=== PATIENT | female | born 1960 | race Caucasian/White ===

== ENCOUNTER 2020-06-02 07:55 | Outpatient (CLI) | payer BC, SELFPAY ==
--- NOTE | ~2020-06-02 | MM_ITS ---
EXAMINATION: MM screening rachelle BI w trae HISTORY: Screening TECHNIQUE: Craniocaudal and mediolateral oblique 3-D tomosynthesis images were obtained and synthetic 2-D images were generated. CAD analysis was submitted and interpreted. COMPARISON: Comparison to multiple prior studies sequentially, with oldest reviewed study dated 11/05. BREAST PARENCHYMAL COMPOSITION: There are scattered areas of fibroglandular density. FINDINGS: There is no evidence of suspicious mass, calcification, or architectural distortion to sugg est malignancy in either breast. There has been no suspicious interval change. IMPRESSION: 1. No mammographic evidence of malignancy. 2. Recommend routine screening mammography in one year. BI-RADS Category 1: Negative Reviewed, dictated and finalized at location A. [employer]OR OF COMMUNICATIONS
== END 2020-06-02 07:56 | disposition home or self-care (01) ==
LOC: ANHIMG 07:57
PROVIDERS: PCP Family Medicine; Visit Provider Family Medicine
DX: Z12.31 Encounter for screening mammogram for malignant neoplasm of breast (principal)
CPT/HCPCS: 77063; 77067

== ENCOUNTER 2020-06-29 13:23 | Emergency (ER) | payer BC, SELFPAY ==
--- NOTE | ~2020-06-29 | XR_ITS ---
EXAMINATION: XR ankle LT min 3V DATE: 06/29/2020 13:51 INDICATION: Left ankle pain TECHNIQUE: Anteroposterior, lateral, mortise, and additional oblique view of the ankle were obtained. COMPARISON: None. FINDINGS: There is diffuse soft tissue swelling of ankle. No fracture is identified. 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 IMPRESSION: 1. Ankle soft tissue swelling without acute osseous abnormality identified. Reviewed, dictated and finalized at location A. [employer]
--- NOTE | 2020-06-29 13:33 | ED.LOWEXIN ---
HPI - Extremity Injury (Lower) General Chief Complaint: Extremity Injury, Lower Stated Complaint: Left Ankle Pain Time Seen by Provider: 06/29/20 13:38 Source: patient and RN notes reviewed Mode of arrival: ambulatory Limitations: no limitations History of Present Illness HPI Narrative: 59-year-old female presents with concern for left lateral ankle pain. Reports on Tuesday she slipped on the ice and rolled her ankle. Reports she has been using a supportive shoe and taking ibuprofen with some relief. Reports symptoms have improved slightly today. She reports left lateral ankle swelling. Denies decreased sensation, strength, range of motion. MD complaint: ankle injury Related Data Home Medications Medication Instructions Recorded Confirmed cholecalciferol (vitamin D3) 625 25,000 unit PO WEEKLY 07/16/19 03/28/20 mcg (25,000 unit) capsule folic acid 20 mg capsule 20 mg PO DAILY 07/16/19 03/28/20 multivitamin 1 tablet PO DAILY 07/16/19 03/28/20 clobetasol 0.05 % scalp solution 1 applic TOPICAL DAILY 03/28/20 03/28/20 doxycycline hyclate 20 mg tablet 40 mg PO DAILY tablet 03/28/20 03/28/20 minoxidil 2 % topical solution 1 ml TOPICAL ONCE ml 03/28/20 03/28/20 Allergies Allergy/AdvReac Type Severity Reaction Status Date / Time Penicillins Allergy Unknown UNKNOWN Verified 03/28/20 16:09 Review of Systems Review of Systems: Narrative: CONSTITUTIONAL: Denies malaise, chills, sweats, or fever. CARDIOVASCULAR: Denies chest pain, palpitations, or edema. RESPIRATORY: Denies cough or dyspnea. SKIN: Denies lacerations, abrasions MUSCULOSKELETAL: Reports left lateral ankle pain and swelling, reports pain exacerbated with flexion of toes NEUROLOGIC: Denies numbness, weakness All systems reviewed & are unremarkable except as noted in HPI and below PMFSH Past Medical History Medical History (Updated 06/29/20 @ 14:07 by Lisa Wallace NP) Anemia Encounter for monitoring Dilantin therapy Endometrial hyperplasia History of shingles Hypertension Surgical History Surgical History H/O colonoscopy 2018 History of cholecystectomy History of removal of both ovaries History of tonsillectomy Family History Family History Mother Hypertension Family history of kidney disease Family history of diabetes mellitus in first degree relative Father Family history of diabetes mellitus in first degree relative Family history of malignant neoplasm of urinary bladder Social History Social History Smoking status: Never smoker Second hand tobacco smoke exposure: No Alcohol intake: current Comments At time of signature, agree with nursing past medical, surgical, social and family history. There is no relevant family history pertinent to the presenting complaint Exam Narrative: Exam Narrative: GENERAL: Well-appearing, well-nourished, and in no acute distress. HEAD: Normocephalic, atraumatic. EYES: PERRLA, conjunctivae clear NECK: Supple. CHEST: Speaks in full sentences. No respiratory distress. HEART: Regular rate and rhythm. Normal and equal peripheral pulses. EXTREMITIES: Left ankle, foot, digits have normal strength and sensation, normal range of motion. Moderate lateral ankle edema, no ecchymosis. 5/5 strength with ankle and digit flexion and extension. Normal sensation with sensitivity to light touch and pain. Lateral ankle tenderness. No open wounds, no skin tenting, no devitalized tissue or atrophy, no trophic changes, no obvious deformity, alignment normal, nearby joints and structures intact. Distal pulses palpable and equal bilaterally, skin warm, dry, pink. Capillary refill less than 3 seconds. SKIN: Warm, dry, no rash. NEURO: Alert and oriented x3. PSYCH: Normal mood and affect Course Course Emergency Course: Patient is aware of diagnosi
[2020-06-29 13:42] VITALS: BP 147/70; PULSE 67; RESP 16; TEMP 36.4; O2SAT 97
== END 2020-06-29 14:17 | disposition home or self-care (01) ==
PROVIDERS: Emergency Provider Nurse Practitioner; PCP Family Medicine
DX: S93.402A Sprain of unspecified ligament of left ankle, initial encounter (principal); W18.49XA Other slipping, tripping and stumbling without falling, initial encounter; I10 Essential (primary) hypertension; N85.00 Endometrial hyperplasia, unspecified
CPT/HCPCS: 73610; 99213; G0463

== ENCOUNTER 2021-11-21 10:04 | Emergency (ER) | payer BC, SELFPAY ==
[2021-11-21 10:13] VITALS: BP 140/69; PULSE 58; RESP 16; TEMP 36.5; O2SAT 99
--- NOTE | 2021-11-21 10:17 | ED.SKABFB ---
HPI - Skin/Abscess/Foreign Bdy General Chief complaint: Skin/Abscess/Foreign Body Stated complaint: rash Time Seen by Provider: 11/21/21 10:18 Source: patient and RN notes reviewed Mode of arrival: ambulatory Limitations: no limitations History of Present Illness HPI narrative: 61-year-old female presents to the [facility] with complaints of a rash to the abdomen, bilateral forearms and posterior legs for approximately a week to 10 days. Has tried xjlq-[id number]-[id number] products with no relief. Patient denies any new creams, ointments, lotions or detergents. States that she was playing with her friend's dog and several hours later rash developed. Tried multiple [id number]-[id number] products with no complete relief. Onset (ago): day(s) () Related Data Home Medications Medication Instructions Recorded Confirmed folic acid 20 mg capsule 20 mg PO DAILY 07/16/19 04/08/21 multivitamin 1 tablet PO DAILY 07/16/19 04/08/21 clobetasol 0.05 % scalp solution 1 applic topical DAILY 03/28/20 04/08/21 doxycycline hyclate 20 mg tablet 40 mg PO DAILY 03/28/20 04/08/21 minoxidil 2 % topical solution 1 ml topical ONCE 03/28/20 04/08/21 (Rogaine) Allergies Allergy/AdvReac Type Severity Reaction Status Date / Time Penicillins Allergy Unknown UNKNOWN Verified 04/08/21 15:53 Review of Systems Review of Systems: All systems reviewed & are unremarkable except as noted in HPI and below Constitutional: Constitutional: Reports no additional constitutional complaints, Denies chills and Denies fever(s) Eyes: Eyes: Reports no additional eye complaints ENT: Reports system reviewed and no additional complaints, except as documented Cardiovascular: Cardiovascular: Reports no additional cardiovascular complaints Respiratory: Respiratory: Reports no additional respiratory complaints Gastrointestinal: Gastrointestinal: Reports no additional gastrointestinal complaints Musculoskeletal: Musculoskeletal: Reports no additional musculoskeletal complaints Integumentary/Breasts: Skin/Breast: Reports as per HPI and Reports rash (Abdomen, bilateral forearms, posterior knees) Neurologic: Reports system reviewed and no additional complaints, except as documented Psychiatric: Psychiatric: Reports no additional psychiatric complaints Allergic/Immunologic: Allergic/Immunologic: Reports no additional allergic/immunologic complaints PMFSH Past Medical History Medical History Anemia Encounter for monitoring Dilantin therapy Endometrial hyperplasia History of shingles Hypertension Surgical History Surgical History H/O colonoscopy 2018 History of cholecystectomy History of removal of both ovaries History of tonsillectomy Family History Family History Mother Hypertension Family history of kidney disease Family history of diabetes mellitus in first degree relative Father Family history of diabetes mellitus in first degree relative Family history of malignant neoplasm of urinary bladder Social History Social History Second hand tobacco smoke exposure: No Alcohol intake: current Comments At the time of my signature, I reviewed and agree with the nursing past medical, surgical, social, and family history. There is no relevant family history pertinent to the patient complaint. Exam Const: General: healthy appearing, no acute distress and alert Nutritional Appearance: well nourished Orientation/consciousness: patient oriented x3 Limitations: no limitations HENMT: Head: normal to inspection Ears: external ears normal Mouth: Yes Normal oral and palatal mucosa present and Yes lip normal Throat: posterior oropharynx normal and uvula midline Eyes: General: appearance normal, both eyes and all related structures Pupils: Equal, rou
== END 2021-11-21 10:31 | disposition home or self-care (01) ==
PROVIDERS: Emergency Provider Nurse Practitioner; PCP Family Medicine
DX: L25.9 Unspecified contact dermatitis, unspecified cause (principal); I10 Essential (primary) hypertension; N85.00 Endometrial hyperplasia, unspecified
CPT/HCPCS: 99213; G0463

== ENCOUNTER 2022-08-12 07:41 | Outpatient (CLI) | payer BC, SELFPAY ==
--- NOTE | ~2022-08-12 | DEXA_ITS ---
Bone Density Report Name: GEOVANNY ARAUJO Age: 61 Sex: Female Ethnicity: White Date of : 1960 Indication: postmenopausal; screening for osteoporosis; seizure disorder; Referring Provider: LARS MURRAY Study: Bone densitometry was performed. Exam Date: August 12, 2022 Accession number: [id number] Bone Density: Region BMD T-score Z-score Classification AP Spine(L1-L4) 1.059 0.1 1.6 Normal Femoral Neck (Left) 0.745 -0.9 0.4 Normal Total Hip (Left) 0.958 0.1 1.1 Normal Femoral Neck (Right) 0.776 -0.7 0.7 Normal Total Hip (Right) 0.887 -0.4 0.5 Normal Total Hip Mean 0.923 -0.2 0.8 Normal World Health Organization criteria for BMD impression classify patients as: Normal (T-score at or above -1.0), Osteopenia (T-score between -1.0 and -2.5), or Osteoporosis (T-score at or below -2.5). 10-year Fracture Risk: FRAX not reported because: All T-scores for Spine Total, Hip Total, Femoral Neck at or above -1.0 Clinical Information Provided by Patient: Has used the following medications: Vitamin D, Calcium Has the following medical conditions: Any Seizure Disorders Patient maximum height was 65 Menopause Age: 51 No regular weight bearing exercise Drinks caffeinated beverages Onset of menses at age 10 Number of children 0 Impression: The patient has normal bone mass. Discussion: BONE DENSITY IS ABOVE THE MINIMUM DESIRABLE LEVEL AT ALL SKELETAL SITES TESTED. This patient?s bone mineral density is above the minimum desirable level (T-score -1.0 or better) at all sites measured. The patient should follow a healthful lifestyle (good nutrition with adequate calcium and vitamin D, and appropriate weight-bearing exercise). Follow-Up: Consider repeating this study in 5 years or sooner if there is some new clinical indication. Reported by: JORDON on 08/12/2022 8:26:00 AM. Reviewed, dictated and finalized at location A.
--- NOTE | ~2022-08-12 | MM_ITS ---
EXAMINATION: MM screening rachelle BI w trae HISTORY: Screening TECHNIQUE: Craniocaudal and mediolateral oblique 3-D tomosynthesis images were obtained and synthetic 2-D images were generated. CAD analysis was submitted and interpreted. COMPARISON: Comparison to multiple prior studies sequentially, with oldest reviewed study dated 11/05. BREAST PARENCHYMAL COMPOSITION: There are scattered areas of fibroglandular density. FINDINGS: There are developing nodular asymmetries in the central aspect of the right breast. The lef t breast is stable without evidence for malignancy. IMPRESSION: 1. Developing right breast asymmetries. 2. Additional mammographic views and possible breast ultrasound are recommended. BI-RADS Category 0: Incomplete: Needs additional imaging evaluation. Reviewed, dictated and finalized at location A. IMPRESSION: 1. Developing right breast asymmetries. 2. Additional mammographic views and possible breast ultrasound are recommended . BI-RADS Category 0: Incomplete: Needs additional imaging evaluation.
== END 2022-08-12 07:42 | disposition home or self-care (01) ==
PROVIDERS: PCP Family Medicine; Visit Provider Family Medicine
DX: Z12.31 Encounter for screening mammogram for malignant neoplasm of breast (principal); Z78.0 Asymptomatic menopausal state; R92.8 Other abnormal and inconclusive findings on diagnostic imaging of breast
CPT/HCPCS: 77063; 77067; 77080

== ENCOUNTER 2022-08-31 13:31 | Outpatient (CLI) | payer BC, SELFPAY ==
--- NOTE | ~2022-08-31 | MMUS_ITS ---
EXAMINATION: MM diagnostic rachelle RT w trae, US breast RT complete HISTORY: Developing right breast mammographic asymmetries TECHNIQUE: Additional 3-D tomosynthesis images of the breast were performed and synthetic 2-D images were generated. CAD analysis was submitted and interpreted. High resolution complete right breast ult rasound examination including all four quadrants and subareolar area was performed. COMPARISON: August 12, 2022 bilateral screening mammogram FINDINGS: MAMMOGRAPHIC FINDINGS: There is an approximately 3 x 6 mm circumscribed opacity in the central right breast medial to the mi d sagittal plane, with halo sign, possible radiolucent hilus, likely benign, probably an intramammary lymph node. No suspicious mass or architectural distortion malignant calcification, skin thickening or retraction is detected. ULTRASOUND: No suspicious mass or shadowing or other significant sonographic abnormality is detected. IMPRESSION: 1. Probably benign finding 2. 6 month follow up right diagnostic mammogram is recommended. BI-RADS category 3, probably benign findings. Reviewed, dictated and finalized at location A. IMPRESSION: 1. Probably benign finding 2. 6 month follow up right diagnostic mammogram is recommended. BI-RADS category 3, probably benign findings.
== END 2022-08-31 13:32 | disposition home or self-care (01) ==
PROVIDERS: PCP Family Medicine; Visit Provider Family Medicine
DX: R92.8 Other abnormal and inconclusive findings on diagnostic imaging of breast (principal)
CPT/HCPCS: 76641; 77061; 77065; G0279

== ENCOUNTER 2023-04-08 13:06 | Outpatient (CLI) | payer BC, SELFPAY ==
--- NOTE | ~2023-04-08 | MMUS_ITS ---
EXAMINATION: MM diagnostic rachelle RT w trae, US breast RT complete HISTORY: Probably benign approximately 3 x 6 mm circumscribed opacity in central right breast medial to mid sagittal plane, with halo sign, likely benign, diagnostic right mammogram TECHNIQUE: Full-field and spot ML, MLO and CC 3-D tomosynthesis images of the right breast were perfo rmed and synthetic 2-D images were generated. CAD analysis was submitted and interpreted. High resolu tion complete right breast ultrasound examination including all 4 quadrants and subareolar area was p erformed. COMPARISON: 08/31/2022 diagnostic right mammogram and complete right breast ultrasound 08/12/2022 bilateral screening mammogram BREAST PARENCHYMAL COMPOSITION: There are scattered areas of fibroglandular density. FINDINGS: MAMMOGRAPHIC FINDINGS: Stable scattered low-density nodular opacities, without interval change since 08/12/2022. ULTRASOUND: Numerous suspicious mass or shadowing, cyst or other significant sonographic abnormality of the right breast is detected. IMPRESSION: 1. Benign findings 2. Routine annual mammographic screening is recommended BI-RADS Category 2: Benign finding(s). Reviewed, dictated and finalized at location A. [employer] INST[employer]ER IMPRESSION: 1. Benign findings 2. Routine annual mammographic screening is recommended BI-RADS Category 2: Benign finding(s).
== END 2023-04-08 13:07 | disposition home or self-care (01) ==
PROVIDERS: PCP Family Medicine; Visit Provider Family Medicine
DX: R92.8 Other abnormal and inconclusive findings on diagnostic imaging of breast (principal)
CPT/HCPCS: 76641; 77061; 77065; G0279

== ENCOUNTER 2024-09-06 15:30 | Outpatient (RCR) | payer BC, OTHER, SELFPAY | END 2024-09-27 23:59 | disposition home or self-care (01) | LOC: ANHDMC 15:30 | PROVIDERS: PCP Family Medicine; Visit Provider Family Medicine | DX: E11.9 Type 2 diabetes mellitus without complications (principal); Z71.89 Other specified counseling | CPT/HCPCS: G0108 ==

== ENCOUNTER 2025-03-12 15:30 | Outpatient (RCR) | payer OTHER, SELFPAY | END 2025-03-18 11:38 | disposition home or self-care (01) | LOC: ANHDMC 15:30 | PROVIDERS: PCP Family Medicine; Visit Provider Family Medicine | DX: E11.9 Type 2 diabetes mellitus without complications (principal); Z71.89 Other specified counseling | CPT/HCPCS: G0108 ==

== ENCOUNTER 2025-03-25 13:12 | Outpatient (CLI) | payer OTHER, SELFPAY ==
--- NOTE | ~2025-03-25 | MM_ITS ---
EXAMINATION: MM screening rachelle BI w trae HISTORY: Screening TECHNIQUE: Craniocaudal and mediolateral oblique 3-D tomosynthesis images were obtained and synthetic 2-D images were generated. CAD analysis was submitted and interpreted. COMPARISON: Comparison to multiple prior studies sequentially, with oldest reviewed study dated , 11/05/2013 BREAST PARENCHYMAL COMPOSITION: There are scattered areas of fibroglandular density. FINDINGS: There is no evidence of suspicious mass, calcification, or architectural distortion to suggest malignancy in either breast. IMPRESSION: 1. No mammographic evidence of malignancy. 2. Recommend routine screening mammography in one year. BI-RADS Category 1: Negative Reviewed, dictated and finalized at location B. OR OF DENTAL SURGERY
== END 2025-03-25 13:13 | disposition home or self-care (01) ==
LOC: CHSIMG 13:13
PROVIDERS: PCP Family Medicine; Visit Provider Family Medicine
DX: Z12.31 Encounter for screening mammogram for malignant neoplasm of breast (principal)
CPT/HCPCS: 77063; 77067